=== PATIENT | male | born 1990 | race Asian ===

== ENCOUNTER 2019-12-09 09:41 | Inpatient (IN) | payer OTHER ==
[~2019-12-09] VITALS: Ht 182.9 cm; Wt 136.1 kg
[2019-12-09 09:57] VITALS: Ht 182.9 cm; Wt 136.1 kg
--- NOTE | 2019-12-09 10:00 | NUR ---
PT BIB [facility] FOR C/O OF EPIGASTRIC PAIN SINCE 0000 LAST NIGHT S/P EATING "[employer]." PT WAS PICKED UP FROM [facility].PT REPORTS NAUSEA AT THIS TIME. PT ABDOMEN NOTED DISTENDED AND FIRM AROUND OSTOMY LOCATED OT LUQ. OSTOMY BAG NOTED CLEAN, PT IS AAOX4, RESP E/U, PINK STOMA NOTED TO LUQ, NO VOMITING NOTED AT THIS TIME. PLACED PT ON FULL CM, NSR. AWAITING MSE BY .
--- NOTE | 2019-12-09 10:15 | NUR ---
PT GIVEN URINAL AND INSTRUCTED OF URINE SAMPLE.
--- NOTE | 2019-12-09 10:28 | NUR ---
THERAPEUTIC RIDING INSTRUCTOR AT THE BEDSIDE FOR LAB DRAW
--- NOTE | 2019-12-09 10:30 | NUR ---
EKG IN PROGRESS
[2019-12-09 10:38] LABS: BASOPHIL % 0.6 % (0-2); PLATELET COUNT 227 x10^3mcL (130-400)
[2019-12-09 10:41] LABS: RED CELL DISTRIBUTION WIDTH 15.1 % (11.5-14.5)
[2019-12-09 10:42] LABS: rbc morphology (normal/abnorm) ABNORMAL (NORMAL)
--- NOTE | 2019-12-09 10:42 | NUR ---
PT RETURNED FROM [facility] VIA [facility]
--- NOTE | 2019-12-09 10:46 | NUR ---
MEDICATED PT PER MD ANDERSON, SEE EMAR. PT VERBALIZED UNDERSTANDING OF MEDICATION TEACHING
[2019-12-09 10:54] LABS: CALCIUM 9.5 mg/dL (8.5-10.1); CARBON DIOXIDE 28.5 mmol/L (21-32); CHLORIDE SERUM 105 mmol/L (98-107); CREATININE SERUM 1.2 mg/dL (0.7-1.3); GFR1 > 60 mL/min; GLUCOSE SERUM 103 mg/dL (74-106); POTASSIUM SERUM 3.8 mmol/L (3.5-5.1); SODIUM SERUM 143 mmol/L (136-145)
[2019-12-09 10:59] LABS: ALBUMIN 4.2 g/dL (3.4-5.0); ALKALINE PHOSPHATASE 67 U/L (46-116); ALT/SGPT 39 U/L (16-63); AST/SGOT 21 U/L (15-37); BILIRUBIN TOTAL 0.5 mg/dL (0.20-1.00); LIPASE 104 IU/L (73-393)
--- NOTE | 2019-12-09 11:07 | NUR ---
DR MUJICA AT THE BEDSIDE DISCUSSING PLAN OF CARE.
--- NOTE | 2019-12-09 11:36 | NUR ---
PT UNNABLE TO GIVEN URINE AT THIS TIME.
--- NOTE | 2019-12-09 11:36 | NUR ---
DR GUTIERRES AT THE BEDSIDE. PT AWARE HE WILL BE SEEN BY A SURGEON AND ADMITTED TO THE [facility].
--- NOTE | 2019-12-09 12:37 | NUR ---
GAVE REPORT TO ALVIN ROSARIO ON [facility] UNIT WHO WILL ASSUME FURTHER CARE OF THIS PATIENT.
[2019-12-09 12:46] LABS: microscopic required? NO
--- NOTE | 2019-12-09 12:50 | NUR ---
RECEIVED PT FROM ED. ACCOMPANIED BY 2 NURSES VIA Between. PT AAOX4, VERALLY RESPONSIVE. BREATHING EVEN AND UNLABORED, ON ROOM AIR, IN NO ACUTE RESPIRATORY DISTRESS. COLOSTOMY PRESENT, STOMA IS PINK AND MOIST, NO DRAINAGE NOTED. IV SITE TO RIGHT AC INTACT AND PATENT WITH NS 100CC/HR. PATIENT IS AMBULATORY AT BASELINE. C/O PAIN TO UPPER ABDOMEN 8/10 NON-RADIATING. WILL MEDICATE ORDERED. ORIENTED TO ROOM, BED CONTROL, CALL LIGHT SYSTEM. BED IN LOWEST POSITION. WILL CONTINUE TO MONITOR.
[2019-12-09 13:00] LABS: UA SPECIFIC GRAVITY 1.015 (1.005-1.035); urine erythrocyte NEGATIVE (NEGATIVE)
[2019-12-09 13:19] LABS: FREE T4 1.17 ng/dL (0.76-1.46); FREE THYROXINE INDEX 2.5 ug/dL (1.4-4.5)
[2019-12-09 13:21] LABS: T3 TOTAL 1.44 ng/mL
[2019-12-09 14:57] VITALS: BP 144/93
--- NOTE | 2019-12-09 19:30 | NUR ---
ENDORSE PT TO INCOMING NURSE. IN BED AAOX4, VERBALLY RESPONSIVE. DENIES PAIN OR DISCOMFORT AT THIS TIME. ON ROOM AIR, IN NO ACUTE RESPIRATORY DISTRESS. IV SITE TO LFA INTACT AND PATENT RUNNING ON NS AT 100CC/HR. SCD IN PLACE. BED IN LOWEST POSITION. CALL LIGHT WITHIN REACH.
--- NOTE | 2019-12-09 19:45 | NUR ---
RECIEVED REPORT FROM [facility] NURSE. PT IS SITTING AT SIDE OF BED WITH EYES OPEN. PT IS ALERT AND ORIENTED X4. ABLE TO ANSWER ALL QUESTIONS AND COMMANDS. PT STATES HE DOES FEEL DIZZY AND NAUSEOUS. PT HAS ZOFRAN PRESCRIBED PRN AND PT DID REQUEST THE MEDICATION. WILL FOLLOW UP WITH THIS MEDICATION. BREATH SOUNDS CTA. ON ROOM AIR, BREATHING E/U. RADIAL PULSES PRESENT AND MODERATE. BOWEL SOUNDS ARE HYPOACTIVE IN ALL QUADRANTS. LAST BM WAS 2 DAYS AGO. PT ALSO STATES NO GAS HAS PASSED IN COLOSTOMY. STOMA IS PINK IN COLOR. DISTENSION NOTED IN LUQ AND LLQ. ABDOMEN SOFT IN RUQ AND RLQ. PT STATES DISTENSION WAS WORSE A FEW DAYS AGO, BUT STILL APPEARS DISTENDED. HEALED SURGICAL SCAR BELOW UMBILICUS. NO PAIN NOTED AT THIS TIME. IV ON LFA 20 G. SITE CDI. NO PAIN ON IV SITE NOTED AT THIS TIME. NS RUNNING AT 100 MLS/HR. WILL CONTINUE TO MONITOR. BED IN LOWEST AND LOCKED POSITION. CALL LIGHT WITHIN REACH.
[2019-12-09 20:44] VITALS: BP 130/70
--- NOTE | 2019-12-09 20:45 | NUR ---
ASSISTED PT TO MOVE FROM A BED TO B BED WITHIN THE SAME ROOM. PT REQUESTED THIS BECAUSE HE WAS FEELING, "HOT" AND WANTED TO BE NEAR THE AIR CONDITIONER. BED LOCKED AND IN LOWEST POSITION BEFORE TRANSFERING. PT MADE COMFORTABLE IN BED. PT WAS GIVEN ZOFRAN PRN REQUESTED. WILL FOLLOW UP FOR EFFECT OF MEDICATION. CALL LIGHT WITHIN REACH. WILL CONTINUE TO MONITOR.
--- NOTE | 2019-12-09 21:05 | NUR ---
PT STATES HE STILL FEELS NAUSEOUS BUT NO PAIN NOTED AT THIS TIME. PT ALSO STATES HE DOES NOT WANT ANY PAIN MEDICATION. WILL CONTINUE TO MONITOR FOR PAIN. PT AWARE OF NPO STATUS. ALTHOUGH HE IS REQUESTING ICE CHIPS. WILL FOLLOW UP WITH DOCTOR. BED IN LOWEST AND LOCKED POSITION. WILL CONTINUE TO MONITOR. CALL LIGHT WITHIN REACH.
--- NOTE | 2019-12-10 01:35 | NUR ---
PT STATED 8/10 PAIN ON LFA IV SITE. PTS LFA 20 G IV DC. NEW IV SITE STARTED ON RIGHT WRIST 22G BY MARLENE KING. GOOD FLUSH AND BLOOD RETURN. NO PAIN NOTED AT THIS TIME. WILL CONTINUE TO MONITOR NEW IV SITE. NS FLUIDS STARTED AT 100 MLS/HR. BED IN LOWEST AND LOCKED POSITION. CALL LIGHT WITHIN REACH.
--- NOTE | 2019-12-10 02:35 | NUR ---
FOLLOWED UP WITH PATIENT AND HE SAID RIGHT WRIST IV SITE WAS PAINFUL. 8/10 PAIN. OBSERVED IV SITE AND SITE WAS CDI. NO DRAINAGE OR REDNESS AT SITE. NO SWELLING. WILL FOLLOW UP ONCE I SPEAK WITH MARLENE KING. BED IN LOWEST AND LOCKED POSITION. CALL LIGHT WITHIN REACH. NOTIFIED PATIENT TO PRESS CALL LIGHT IF PAIN WORSENS.
--- NOTE | 2019-12-10 02:45 | NUR ---
CAME BACK INTO THE ROOM TO SPEAK WITH PT AND PT HAS PULLED OUT HIS OWN IV ON THE RIGHT WRIST 22G. IV CATHETER LOOKS INTACT. NO BLEEDING NOTED. PT STATED IT, "HURT." FLUIDS STOPPED AT THE MOMENT AND TURNED OFF IV PUMP. WILL FOLLOW UP AND PUT NEW IV SITE ON PT. PT MADE COMFORTABLE. BED IN LOWEST AND LOCKED POSITION. WILL CONTINUE TO MONITOR.
[2019-12-10 05:25] VITALS: BP 135/69
--- NOTE | 2019-12-10 05:45 | NUR ---
FERNANDO ROSARIO HAS INSERTED LH 20 G IV. GOOD FLUSH AND BLOOD RETURN. NO REDNESS OR DRAINAGE NOTED. NO PAIN NOTED AT THIS TIME. WILL CONTINUE TO MONITOR. CALL LIGHT WITHIN REACH.
--- NOTE | 2019-12-10 06:15 | NUR ---
INSERTED A 16 ARGENTINE NGT TO LEFT NARES, PT SEMI TOLERANT OF PROCEDURE. TWO NURSES AT BEDSIDE TO ASSIST. CALLED RADIOLOGY FR STAT KUB PLACEMENT VERIFICATION. WILL CONTINUE TO MONITOR.
--- NOTE | 2019-12-10 06:20 | NUR ---
PT STATING "IN GOING TO PULL IT OUT, IM GOING TO PULL IT OUT, I DON'T CARE!" EDUCATED PT IN REGARDS TO THE RISK OF PULLING OUT NGT WELL THE BENEFITS OF THE NGT FOR DECOMPRESSION. CHARGE NURSE BA AT BEDSIDE FOR SAFETY. PT QUIET AND APPEARS TO GRASP THE IMPORTANCE OF BEING TOLERANT OF TUBE. RADIOLOGY AT BEDSIDE TO TAKE IMAGE. WILL CONTINUE TO MONTIOR.
--- NOTE | 2019-12-10 06:32 | NUR ---
PHONED DR. ANN FOR A RELAXATION MEDICATION D/T PT JUST WANTS TO SLEEP S/P NGT PLACEMENT. WILL WAIT FOR ORDER.
--- NOTE | 2019-12-10 06:40 | NUR ---
MEDICATED PT WITH ATIVAN 1MG IVP TO HELP RELAX S/P NGT INSERTION. PT CALM AND COOPERATIVE WITH PLAN AT THIS TIME. WILL REMAIN AT BEDSIDE TO ENSURE PT DOES NOT PULL ON NGT.
--- NOTE | 2019-12-10 07:10 | NUR ---
RECEIVED PT IN BED ASLEEP AT THE TIME. EASILY AROUSABLE. ON NPO STATUS. NGT IN PLACE WITH LOW INTERMITTENT SUCTION. IV SITE TO LEFT HAND RUNNING ON NS 100CC/HR. IN NO ACUTE RESPIRATORY DISTRESS. NO FACIAL GRIMACING OR GRUNTING. BED IN LOWEST POSITION. CALL LIGHT WITHIN REACH. WILL CONTINUE TO MONITOR.
--- NOTE | 2019-12-10 07:31 | NUR ---
FERNANDO RN ENDORSED CARE TO DAYSHIFT NURSE. PATIENT IN BED LYING SUPINE WITH EYES CLOSED. DAYSHIFT NURSE MADE AWARE OF PT PULLING OUT LINES. CONSENT SIGNED. CHECKLIST COMPLETED. NG TUBE INSERTED. AWAITING KUB RESULTS. BED IN LOWEST AND LOCKED POSITION. CALL LIGHT WITHIN REACH.
[2019-12-10 09:12] VITALS: BP 145/74
--- NOTE | 2019-12-10 09:20 | NUR ---
PT PULLED OUT NG TUBE. HE STATED THAT IT WAS UNCOMFORTABLE. MADE AWARE.
--- NOTE | 2019-12-10 12:10 | NUR ---
PT IN BED AWAKE, VERBALLY RESPONSIVE. DENIES PAIN OR DISCOMFORT AT THIS TIME. BREATHING EASY WITH NO RESPIRATORY DISTRESS. BED IN LOWEST POSITION. CALL LIGHT WITHIN REACH. WILL CONTINUE TO MONITOR.
[2019-12-10 13:37] VITALS: BP 131/77
--- NOTE | 2019-12-10 16:30 | NUR ---
MADE ROUNDS AND FOUND PT'S IV DISLODGED ON THE TABLE. HE STATED "IT WAS UNCOMFORTABLE, I WANT TO GO DOWNSTAIRS TO GET SOME FRESH AIR" EXPLAINED HOSPITAL PROCEDURE FOR SAFETY PURPOSES. PT BECAME AGITATED AND STATED "I'M HUNGRY, IF I CAN'T EAT I WOULD JUST GET OUT OF HERE".EXPLAINED NPO STATUS AND STILL PERSISTENT WITH LEAVING AMA. CAME AND EXPLAINED THE SITUATION. PT AGREED TO STAY. PER , HE WILL TALK TO SURGEON ABOUT SURGERY FOR TOMORROW. WILL CONTINUE TO MONITOR.
--- NOTE | 2019-12-10 16:40 | NUR ---
REINSERTED IV SITE TO LEFT HAND 20G AND SECURED WITH TRANSPARENT DRESSING.
[2019-12-10 17:27] VITALS: BP 124/67
--- NOTE | 2019-12-10 19:23 | NUR ---
PT IN BED AT THIS TIME. BREATHING EASY WITH NO ACUTE RESPIRATORY DISTRESS. DENIES PAIN OR DISCOMFORT AT THIS TIME. SCD IN PLACE. IV SITE TO LEFT HAND 20G INTACT AND PATENT RUNNING ON D5 100CC/HR. BED IN LOWEST POSITION. CALL LIGHT WITHIN REACH. WILL ENDORSE TO INCOMING SHIFT.
--- NOTE | 2019-12-10 19:30 | NUR ---
RECIEVED REPORT FROM DAYSHIFT NURSE. DAYSHIFT NURSE HAD NOTFIED US THAT PT HAS BEEN REPORTING THAT HE WILL BE PULLING OUT HIS IV SITE D/T PAIN. WHEN I ENTERED ROOM PT HAS ALREADY PULLED OUT IV ON LH. PT STATES HE WAS IN PAIN. PT ALSO STATES, "I DONT CARE ABOUT THIS ANYMORE." I ASKED IF HE WOULD LIKE A NEW IV PUT IN SO FLUIDS CAN BE RESUMED. HE STATED HE DID NOT WANT AN IV OR ANY FLUIDS AT THIS TIME. PT IS ON ROOM AIR, BREATHING E/U. DISTENSION IS STILL NOTED IN LUQ AND LLQ. BOWEL SOUNDS HYPOACTIVE. NO SOB OR CHEST PAIN. ALERT AND ORIENTED X4. PT HAS NO C/O PAIN AT THIS TIME. PT STATES HE DOES FEEL NAUSEOUS BUT ONLY HAS PRESCRIBED IV ZOFRAN AT THIS TIME. WILL FOLLOW UP WITH PRECEPTOR NURSE. BED IN LOWEST AND LOCKED POSITION. CALL LIGHT WITHIN REACH.
--- NOTE | 2019-12-10 20:25 | NUR ---
PT REQUESTING TO LEAVE AGAINST MEDICAL ADVICE. DR. CONTRERAS AT BEDSIDE TO EXPLAIN THE RISK OF LEAVING WITH SUCH DIAGNOSIS. PT REFUSING TO ANSWER ANY QUESTIONS OR VERBALIZE UNDERSTANDING. PT REFUSING TO SIGN AMA FORMS. UPDATED CHARGE NURSE IN REGARDS TO PT PLAN ON LEAVING. ENCOURAGED PT TO OBTAIN PERSONAL BELONGINGS FROM ROOM. WILL ENSURE PT MAKES IT OUT OF HOSPITAL SAFELY.
--- NOTE | 2019-12-10 20:30 | NUR ---
PT REFUSING TO LEAVE AT THIS TIME, STATES "DO WHATEVER YOU WANT, JUST DO IT RIGHT NOW. DON'T DELAY MY SURGERY ANY LONGER". PT STATES "I WILL IF I LEAVE". EDUCATED PT HE DELAYED THE SURGERY D/T PULLING OUT NGT AND IV'S. PT STATES " I WOKE UP AND THE NGT WAS OUT". INFORMED PT THAT PULLING OUT THE IV'S IS NOT HELPFUL TO HIS SITUATION. PT STATES "WELL, IT HURTS AND YOU GUYS TAKE TOO LONG!". INFORMED PT THE SITE IS NOT SWOLLEN, AND IT FLUSHES WELL. 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 WILL UPDATE RESIDENT WITH PT STATUS.
--- NOTE | 2019-12-10 20:50 | NUR ---
SPOKE TO PATTERNMAKER APPRENTICE WOOD IN REGARDS TO PT BEING DIFFICULT AND INTERFERRING WITH PLAN OF CARE YET REQUESTING TO STAY. PER PATTERNMAKER APPRENTICE WOOD, ALLOW PT TO STAY AND IF ANY REFUSALS OCCUR OVERNIGHT, TO HAVE PT SIGN APPROPRIATE PAPERWORK. WILL MONITOR PT OVERNIGHT AND IMPLEMENT ORDERS ACCORDINGLY. PT STABLE AT THIS TIME.
--- NOTE | 2019-12-10 23:07 | NUR ---
PT SEEN RESTING IN BED WITH EYES CLOSED. BED IN LOWEST AND LOCKED POSITION. CALL LIGHT WITHIN REACH.
--- NOTE | 2019-12-11 00:30 | NUR ---
FAITH RN INSERTED IV 18G ON LFA. GOOD FLUSHING AND BLOOD RETURN. NO REDNESS OR DRAINAGE NOTED. NO C/O PAIN AT THIS TIME. PT WAS ALSO REQUESTING SOMETHING FOR NAUSEA. GAVE PT ZOFRAN PRN PRESCRIBED. WILL FOLLOW UP FOR EFFECT OF MEDICATION. WILL CONTINUE TO MONITOR. BED IN LOWEST AND LOCKED POSITION. CALL LIGHT WITHIN REACH.
[2019-12-11 01:35] VITALS: BP 160/86
--- NOTE | 2019-12-11 02:17 | NUR ---
PT WAS REQUESTING PAIN MEDICATION FOR ABD PAIN 02/21. PT ONLY HAS PO PAIN MEDICATIONS. CALLED DR. CONTRERAS BY PHONE AND SHE STATED SHE WOULD PUT SOMETHING IN THE ORDERS. WAITED FOR VERIFICATION BY PHARMACY. ACKNOWLEDGED MEDICATION. PT GIVEN MORPHINE PRN PRESCRIBED IVP. WILL FOLLOW UP FOR EFFECT OF MEDICATION. WILL CONTINUE TO MONITOR. BED IN LOWEST AND LOCKED POSTION. CALL LIGHT WITHIN REACH.
--- NOTE | 2019-12-11 02:50 | NUR ---
PT STILL HAS C/O PAIN 01/21 IN ABD. WILL FOLLOW UP WITH PT HE ONLY HAS PRESCRIBED MORPHINE PRN Q3HRS. BED IN LOWEST AND LOCKED POSITION. CALL LIGHT WITHIN REACH.
--- NOTE | 2019-12-11 04:00 | NUR ---
CHECKLIST PRINTED AND COMPLETED FOR UPCOMING SURGERY.
[2019-12-11 06:07] VITALS: BP 119/71
--- NOTE | 2019-12-11 06:16 | NUR ---
PT STATED BACK PAIN 01/21. REQUESTING PAIN MEDICATION. TOOK BP. BP WAS 117/75. BREATHING E/U. ON ROOM AIR. NO SOB. NO C/O PAIN RADIATING ELSEWHERE THROUGHOUT BODY. PT GIVEN MORPHINE PRN PRESCRIBED. FOLLOWED UP FOR EFEECT OF MEDICATION ABOUT 30 MIN LATER. PT STATES PAIN WAS THE SAME ON BACK 01/21. WILL CONTINUE TO MONITOR.
[2019-12-11 06:56] LABS: BASOPHIL % 0.4 % (0-2); PLATELET COUNT 204 x10^3mcL (130-400)
[2019-12-11 07:03] LABS: RED CELL DISTRIBUTION WIDTH 15.4 % (11.5-14.5)
[2019-12-11 07:06] LABS: CALCIUM 8.3 mg/dL (8.5-10.1); CARBON DIOXIDE 26.7 mmol/L (21-32); CHLORIDE SERUM 104 mmol/L (98-107); CREATININE SERUM 1.2 mg/dL (0.7-1.3); GFR1 > 60 mL/min; GLUCOSE SERUM 84 mg/dL (74-106); POTASSIUM SERUM 3.7 mmol/L (3.5-5.1); SODIUM SERUM 138 mmol/L (136-145)
--- NOTE | 2019-12-11 07:10 | NUR ---
RECEIVED BEDSIDE REPORT FROM NIGHT RN. PT ASLEEP IN BED. BREATHING EQUAL AND UNLABORED ON RA. NO ACUTE DISTRESS. CALL LIGHT WITHIN REACH. BEDLOCKED IN LOWEST POSITION.
--- NOTE | 2019-12-11 07:21 | NUR ---
ENDORSED CARE TO DAYSHIFT NURSE. PT IS IN BED RESTING WITH EYES CLOSED. PT IS BREATHING ON ROOM AIR. BREATHING E/U. NO C/O PAIN AT THIS TIME. BED IN LOWEST AND LOCKED POSTIION. CALL LIGHT WITHIN REACH.
[2019-12-11 07:51] VITALS: BP 113/59
--- NOTE | 2019-12-11 09:19 | NUR ---
GAVE REPORT TO JENELLE ROSARIO FROM OR. PRE-OP PREP DONE.
--- NOTE | 2019-12-11 11:11 | NUR ---
PT TAKEN TO OR VIA GURNEY IN NO ACUTE DISTRESS.
[2019-12-11 19:15] VITALS: BP 149/93
--- NOTE | 2019-12-11 19:15 | NUR ---
PT RECEIVED BY OR VIA [employer]. PT CURRENTLY SLEEPING NO S/S OF ACUTE DISTRESS NOED. PT PLACED ON TELE#9 READING SINUS TACHY AT 108. BP 138/93, HR 104. RR EVEN AND UNLABORED ON RA. IV TO LFA, PATENT AND INTACT. SOTO CATHETER IN PLACE DRAINING BLOOD TINGED URINE. ABD BINDER IN PLACE. NO C/O PAIN OR DISCOMFORT AT THIS TIME. CALL LIGHT PLACED WITHIN PTS REACH, BED IN LOWEST POSITION. WILL CONTINUE TO MONITOR.
[2019-12-11 19:45] VITALS: BP 149/93
[2019-12-11 21:45] VITALS: BP 153/101
[2019-12-12] VITALS (7 sets, daily range): BP systolic 123–158; BP diastolic 76–110
--- NOTE | 2019-12-12 00:30 | NUR ---
PT SLEEPING AT THIS TIME. NO S/S OF ACUTE DISTRESS NOTED. RR EVEN AND UNLABORED ON 1L NC. NO C/O OF PAIN AT THIS TIME. CALL LIGHT PLACED WITHIN PTS REACH. BED IN LOWEST POSITION. WILL CONTINUE TO MONITOR.
--- NOTE | 2019-12-12 04:04 | NUR ---
PT C/O CHEST PRESSURE AND ABD PAIN 10/10. DR. NARAYAN NOTIFIED, EKG AND NITRO ORDERED. NO ADDITIONAL PAIN MEDICATION PERSCRIBED AT THIS TIME. WILL CONTINUE TO MONITOR.
--- NOTE | 2019-12-12 04:17 | NUR ---
STAT EKG SHOWED SINUS TACH WITH ST ELEVATION. DR. NARAYAN NOTIFIED.
--- NOTE | 2019-12-12 05:13 | NUR ---
PT REFUSED AM LAB DRAW. NOTIFIED.
--- NOTE | 2019-12-12 06:10 | NUR ---
MEDICATED PT FREQUENTLY THROUGHOUT THE NIGHT. ALL NEEDS ADDRESSED AND MET.
--- NOTE | 2019-12-12 06:19 | NUR ---
PT IN NO ACUTE DISTRESS. THROUGHOUT SHIFT PT EXPRESSED VERBAL ABUSE MULTIPLE TIMES, SWEARING AND THROWING THINGS AT STAFF. MEDICATED PT FREQUENTLY PER EMAR THROUGHOUT THE NIGHT. ALL NEEDS ADDRESSED AND MET. PT UNCOOPERATIVE WITH CARE, CHARGE NURSE AND DR. NARAYAN MADE AWARE. WILL ENDORSE TO ONCOMING SHIFT NURSE.
--- NOTE | 2019-12-12 06:43 | NUR ---
DELFINA DRAINING SANGUINEOUS FLUID, 50ML OUTPUT THROUGHOUT SHIFT. SOTO CATHETER D/C.
--- NOTE | 2019-12-12 07:15 | NUR ---
RECIEVED BEDSIDE REPORT FROM NIGHT RN. PT ASLEEP IN BED. EASILY AROUSABLE. NO ACUTE DISTRESS. BREATHING EQUAL AND UNLABORED ON 4L NASAL CANULA. NO CO PAIN AT THIS TIME. CALL LIGHT WITHIN REACH. BED LOCKED IN LOWEST POSITION. WILL CONTINUE TO MONITOR.
--- NOTE | 2019-12-12 08:00 | NUR ---
PT REFUSED AM LAB DRAW. DR NOTIFIED
--- NOTE | 2019-12-12 12:00 | NUR ---
PT ABLE TO SIT UP ON SIDE OF BED WITH ASSISTANCE FOR FIVE MINUTES. PT RETURNED TO LAYING IN BED. NO ACUTE DISTRESS. BREATHING UNLABORED AND EVEN. CALL LIGHT WITH REACH. BED LOCKED IN LOWEST POSITION. WILL CONTINUE TO MONITOR.
--- NOTE | 2019-12-12 15:05 | NUR ---
PT ABLE TO STAND WITH ASSISTANCE TO USE URINAL. URINE DARK RED IN COLOR. PT BACK IN BED. CALL LIGHT WITHIN REACH. BED LOCKED IN LOWEST POSITION. ALL NEEDS MEET AT THIS TIME.
--- NOTE | 2019-12-12 16:10 | NUR ---
PT DENIED PT EVAL
--- NOTE | 2019-12-12 17:06 | NUR ---
PT CO SORE NECK AND RIBS. GIVEN ICE PACKS FOR BOTH. CALL LIGHT WITHIN REACH. BED LOCKED IN LOWEST POSITION. WILL CONTINUE TO MONITOR.
--- NOTE | 2019-12-12 17:29 | NUR ---
P.T. NOTES MULT ATTEMPTS FOR P.T. EVAL, Pt REFUSING, BRIEFLY OPENS EYES, WANTS PAIN MEDS, DOES NOT SPEAK MUCH, RN AWARE; CALL GARCIA, PHONE, TABLE IN REACH, BED ALARM ON, O2 SAT ROOM AIR=95%, HS=076; FF UP WHEN MORE PARTICIPATIVE.
--- NOTE | 2019-12-12 18:44 | NUR ---
PT ASLEEP IN BED. NO SCUTE DISTRESS. HOB ELEVATED. BREATHING EQUAL AND UNLABORED ON 3L NC. NO CO OF PAIN AT THIS TIME. IV IN LEFT HAND 22G DRESSING CDI WITH NO REDNESS SWELLING. PT REFUSED TO USE INSENTIVE SPIROMETER THROUGHT DAY. DELFINA DRAIN ON RIGHT SIDE EMPTIED 70ML BRIGHT RED BLOOD. ALL DRESSING ON ABD INTACT. PT REFUSED BLOOD DRAWS AND PHYSICAL THERAPY TWICE. DR. BARCENAS AWARE. ALL NEEDS MEET AT THIS TIME. CALL LIGHT WITHIN REACH. BED LOCKED AND IN LOWWEST POSITION.
--- NOTE | 2019-12-12 19:26 | NUR ---
RECEIVED PT ASLEEP BUT EASILY AROUSABLE.S/P LAP SX 12/11/19 TO ABDOMEN WITH PRR 04/23 TO ACHING PAIN.BP 157/92 MMHG,HR 117.ABDOMINAL INCISION WITH DRESSING AND SECURED WITH ABDOMINAL BINDER.DELFINA DRAIN TO SEROSANGINOUS OUTPUT.DIMINISHED BREATHSOUNDS.O2 @ 5L/MIN VIA N/C.ENCOURAGED AND DEMONSTRATED PROPER USE OF INCENTIVE SPIROMETER AND DOING 200-300 AT THIS TIME.ABDOMEN FIRM AND DISTENDED.TENDER TO TOUCH.HYPOACTIVE BOWELSOUNDS.TOLERATING FULL LIQUID DIET.ENCOURAGED ACTIVITY.DILAUDID 1 MG IVP ADMINSITERED.COMFORT MEASURES RENDERED.DISCUSSED PAIN MGT TONIGHT AND PASSIVE ABT IT.WILL CONTINUE TO MONITOR.
--- NOTE | 2019-12-12 20:57 | NUR ---
ASSISTED PT IN STANDING UP AND BURPED AT THIS TIME.NORCO 5/325 MG PO ADMINISTERED.COMFORT MEASUERES RENDERED.ENCOURGAED DEEP BREATHING EXERCISES AND USE OF I.S..WILL CONTINUE TO MONITOR.
--- NOTE | 2019-12-13 00:45 | NUR ---
PT NOTED CALLED FOR WATER AND MORE PAIN MEDICATIONS.TOLD NOT DUE YET TIL ANOTHER 15 MINUTES.ALSO NOTED,REMOVED IV LINES AND PULSE OXIMETER FROM FINGER.C/O SOB BUT REMOVES O2 CANNULA.INFORMED OF IMPORTANCE OF ALL EQUIPMENTS BUT REMAINS PASSIVE AND JUST CONTINOUSLY ASKING FOR HIS DILAUDID SHOT.WILL MEDICATE ACCORDINGLY.
--- NOTE | 2019-12-13 01:08 | NUR ---
DUE DILAUDID 1 MG GIVEN .COUPLE OF REQUESTS AT THIS TIME I AFTER THE OTHER.ALL NEEDS MET.ENCOURAGED DEEP BREATHING EXERCISES AND USE OF INCENTIVE SPIROMETER,REQUESTED TO REMOVED HOSP[ITAL GOWN WELL FOR COMFORT.WILL CONTINUE TO MONITOR.
--- NOTE | 2019-12-13 03:00 | NUR ---
PT CONTINUES TO REQUEST PAIN MEDICATIONS ALMOST EVERY 2HOURS.NORCO GIVEN EARLIER BUT INEFFECTIVE PER PT AND DEMANDING TO GET HIS DILAUDID SHOT.DISCUSSED PAIN MGT WITH PT BUT BECAME VERBALLY ABUSIVE TOWARDS STAFF AND TOLD"JUST DO YOUR JOB""AND FUCKING GIVE ME MY MEDICINE".DISCOURAGED BEHAVIOR.CONTINUE TO ENCOURAGED DEEP BREATHING EXERCISES AND INCREASED ACTIVITY.ALS TOLD PT NOT TO UMHOOK HIMSELF FROM IV FLUIDS AND REMOVE MONITORS.ALLOWS TO CALM DOWN.DILAUDID 1 MG IVP ADMINISTERED.WILL CONTINUE TO MONITOR.
--- NOTE | 2019-12-13 04:25 | NUR ---
PT ASKED FOR PAIN MEDS.PT WELL AWARE PAIN MEDS NOT DUE ANYTIME AT THIS TIME.OFFERED DUE 6AM MEDS NEURONTIN AND TYLENOL ES AT THIS TIME BUT SET-UP MEDS BY THE TABLE.ALLOWED TIME TO TAKE MEDS AND WHEN WAS TOLD WHY HE HASN'T TAKEN IT WHEN HE WAS ASKING FOR PAIN MEDS EARLIER STARTED CURSING OUT STAFF AND VERBALIZED" GET THE F.... OUT OF HERE." WILL ALLOW PT TO CALM DOWN.LEFT THE ROOM.
--- NOTE | 2019-12-13 04:31 | NUR ---
PT AWAKE ALMOST ALL NIGHT ASKING FOR PAIN MEDS ALMOST EVERY HOUR.CONSTANLY REMINDED TIME OF HIS PAIN MEDS BUT GETS AGITATED IF HE WONT GET WHAT HE WANTS.VERBALLY ABUSIVE TOWARDS STAFF.NO ASE NOTED FROM ANCEF AND FLAGYL IV ATB.GOT UP OF BED BY BEDSIDE ONLY AND BURPED.CONSTANTLY ENCOURAGED USE OF INCENTIVE SPIROMETER.EMPTIED 20 ML SEROSANGINOUS OUTPUT.WILL CONTINUE TO MONITOR.
[2019-12-13 04:51] VITALS: BP 142/86
--- NOTE | 2019-12-13 05:11 | NUR ---
PT MORE CALM AT THIS TIME.PO MEDS OFFERED AGAIN.DILAUDID 1 MG IV GIVEN WELL.NOTED IV FLUIDS LINE DISCONNECTED AGAIN BY PT.DISCOURAGED BEHAVIOR AND INFORMED IV ATB RUNNING AT THIS TIME.COMFORT MEASURES RENDERED.WILL CONTINUE TO MONITOR.
--- NOTE | 2019-12-13 06:32 | NUR ---
DR. PATRICK MADE AWARE OF PT'S BEHAVIOR ALL NIGHT AND UPDATED ON PT'S ASKING FOR A LOT OF PAIN MEDICATIONS.
[2019-12-13 07:02] LABS: PLATELET COUNT 222 x10^3mcL (130-400)
--- NOTE | 2019-12-13 07:10 | NUR ---
DR. BARCENAS IN TO SEE PT AND UPDATED ON PTS BEHAVIOR AND NEED FOR A LOT OF PAIN MEDS LAST NIGHT.CHARGE NURSES BOTH AM /PM AWARE.
--- NOTE | 2019-12-13 07:10 | NUR ---
RECIEVED BEDSIDE REPORT FROM NIGHT RN. PT ASLEEP IN BED. NO CO PAIN AT THIS TIME. NO ACUTE DISTRESS. HOB ELEVATED. BREATHING EQUAL AND UNLABORED ON 3L NC IV LEFT HAND INTACT WITH NO REDNESS OR SWELLING. URINAL WITHIN REACH. PT TOOK PULSE OX OFF. CALL LIGHT WITHIN REACH. BED LCOKED IN LOWEST POSITION. WILL CONTINUE TO MONITOR.
[2019-12-13 07:27] LABS: CALCIUM 8.4 mg/dL (8.5-10.1); CHLORIDE SERUM 99 mmol/L (98-107); CREATININE SERUM 1.2 mg/dL (0.7-1.3); GFR1 > 60 mL/min; GLUCOSE SERUM 133 mg/dL (74-106); SODIUM SERUM 135 mmol/L (136-145)
[2019-12-13 08:20] VITALS: BP 168/88
[2019-12-13 08:35] LABS: BASOPHIL % 0 % (0-2); RED CELL DISTRIBUTION WIDTH 14.9 % (11.5-14.5)
--- NOTE | 2019-12-13 11:34 | NUR ---
PT ABLE TO SIT ON EDGE OF BED AND MANAGER LOAN PLACE WITH ASSISTANCE. PT USED INCENTIVE SPIROMETER X5 TIMES. REFUSED OTHER ATTEMPTS TO TRY IT. NEW ABDOMINAL BINDER INTACT. ALL ABD DRESSINGS CLEAN DRY AND INTACT. MIDLINE INCISION WITH DERMABOND INTACT. ALL NEEDS MEET AT THIS TIME. CALL LIGHT WITHIN REACH. BED LOCKED IN LOWEST POSITION. WILL CONTINUE TO MONITOR.
--- NOTE | 2019-12-13 13:10 | NUR ---
NEW IV STARTED IN RIGHT HAND 20G WITH GOOD BLOOD RETURN. PT AMBULATED APPROX. 50FT IN HALLWAY WITH NO NEED OF ASSISTANCE. PT AMBULATED TO TOILET TO PEE. PT STATED HE FEELS LESS BLOATED AFTER AMBULATING. PT BACK IN BED RESTING. BREATHING EQUAL AND UNLABORED ON 3L NC. CALL LIGHT WITHIN REACH. BED LCOKED IN LOWEST POSITION. WILL CONTINUE TO MONITOR.
[2019-12-13 16:06] VITALS: BP 156/101
--- NOTE | 2019-12-13 18:55 | NUR ---
PT ASLEEP IN BED. NO CO PAIN AT THIS TIME. BREATHING UNLABORED AND EVEN ON 3L NC.IV IN R HAND CLEAN DRY INTACT. ALL NEEDS MEET AT THIS TIME. CALL LIGHT WITHIN REACH. BED LOCKED IN LOWEST POSITION. WILL ENDORSE TO NIGHT RN.
--- NOTE | 2019-12-13 19:10 | NUR ---
RECEIVED PT FROM PREVIOUS SHIFT. PT RESTING WITH EYES CLOSED. RR EVEN/UNLABORED. IV PATENT AND INFUSING LR AT 125ML/HR WITH NO S/S OF INFILTRATION. ABD BINDER IN PLACE, CDI. CALL LIGHT WITHIN REACH, BED IN LOW POSITION WILL CONTINUE TO MONITOR.
[2019-12-13 19:18] VITALS: BP 149/86
--- NOTE | 2019-12-13 22:01 | NUR ---
PT DISCONNECTED IV WHILE INFUSING. REFUSING IV FLUIDS. INFORMED PATIENT OF ORDERED TREATMENT AND ENCOURAGED HIM TO ALLOW TREATMENT. CONTINUES TO REFUSE.
--- NOTE | 2019-12-13 22:36 | NUR ---
PT C/O 10/10 PAIN TO ABD. UPON ENTERING ROOM, WATER AND URINE ON THE FLOOR. PATIENT THREW PITCHER ON THE FLOOR. DISCONNECTED IV AND ATTEMPTED TO THROW IV POLE. SECURITY CALLED TO BEDSIDE. DILAUDID GIVEN IVP. PT REFUSING LR FLUIDS.
--- NOTE | 2019-12-14 00:34 | NUR ---
PT C/O 04/23 ABD PAIN. DILAUDID GIVEN IVP PER EMAR. WITNESSED AT BEDSIDE BY MARLENE GAMBLE.
--- NOTE | 2019-12-14 01:30 | NUR ---
NORCO PROVIDED PER EMAR. PT THREW FOOD TRAY ON FLOOR. CURSING AND YELLING AT STAFF. REFUSING VITAL SIGNS. REFUSING ASSESSMENT OF SURGICAL DRESSING.
--- NOTE | 2019-12-14 02:30 | NUR ---
DILAUDID IVP GIVEN PER EMAR, WITNESSED AT BEDSIDE BY MARLENE BERRY
--- NOTE | 2019-12-14 04:43 | NUR ---
DILAUDID GIVEN IVP PER EMAR, WITNESSED AT BEDSIDE BY MARLENE YUSUF
[2019-12-14 04:46] VITALS: BP 152/97
--- NOTE | 2019-12-14 06:32 | NUR ---
PT CONTINUES TO REFUSE IV FLUIDS, AND ANITBIOTICS. REFUSING DRESSING CHANGES TO ABD. EDUCATED PATIENT ON IMPORTANCE OF ADHERING TO MEDICATIONS. VERBALIZED UNDERSTANDING, CONTINUES TO REFUSE. IV DILAUDID GIVEN PER EMAR, WITNESSED AT BEDSIDE BY MARLENE YUSUF. WILL ENDORSE CARE TO ONCOMING SHIFT
[2019-12-14 07:18] LABS: PLATELET COUNT 226 x10^3mcL (130-400)
[2019-12-14 07:19] LABS: BASOPHIL % 0 % (0-2); RED CELL DISTRIBUTION WIDTH 14.8 % (11.5-14.5)
[2019-12-14 07:20] VITALS: BP 145/93
--- NOTE | 2019-12-14 07:20 | NUR ---
RECEIVED PT IN BED A/A/OX4 DENIES FOSTER. RESP EVEN AND UNLABORED WITH CLEAR BS BILAT. ON RA AND O2 AT 2L/MIN PRN WHEN SOB. AFTER AMBULATION. DENIES ANY SOB/CP/PRESSURE AT THIS TIME. ST ON TELE. NO EDEMA NOTED WITH IVF TO RH. PER REPORT AND PT HAS BEEN REFUSING IVF. PT WOULD NOT ALLOW FLUIDS AT THIS TIME. ABD DISTENDED AND TENDER WITH HYPOACTIVE BS >LT SIDE. PT S/P COLOSTOMY TAKEDOWN WITH HERNIA REPAIR POD3. HAD MIDLINE INCISION GENIE WITH DRSG TO MID ABD, WITH SOME DRY SANGUINOUS DRAINAGE. LLQ WITH ABD PAD IN PLACE AT OLD COLOSTOMY SITE. RMID ABD WITH DELFINA DRAIN TO CALE DRAIN TO SUCTION WITH SEROUSANGUINOUS DRAINAGE ABOUT 5ML. PT DENIES N/V OR FLATUS, +BURPING. REPORTS FEELING BLOATED AND UNCOMFORTABLE. VOIDING FREELY WITH AMY URINE. DOES VOID INTO SHEETS OR TOWELS AT TIMES. AMBULATORY, INSTRUCTED TO INCREASE ACTIVITY TOLERATED. CALL LIGHT IN REACH NEEDS ATTENDED TO AND ANTICIPATE. PT CALM AT THIS TIME. NOT VERBALY AGRESIVE.
[2019-12-14 07:22] LABS: CALCIUM 8.8 mg/dL (8.5-10.1); CARBON DIOXIDE 31.2 mmol/L (21-32); CHLORIDE SERUM 98 mmol/L (98-107); GFR1 > 60 mL/min; GLUCOSE SERUM 107 mg/dL (74-106); SODIUM SERUM 136 mmol/L (136-145)
--- NOTE | 2019-12-14 07:28 | NUR ---
PT C/O PAIN AT THIS TIME. TO ABD MEDICATED WITH NORCO PO PER EMAR. PT C/O OF FEELING BLOATED AND DISTENDED ABD. WILL DISCUSS WITH SMT OPERATOR.
--- NOTE | 2019-12-14 07:35 | NUR ---
SPOKE WITH SUPERVISOR RESEARCH KENNEL REGARDING C/O BLOATING. PER SUPERVISOR RESEARCH KENNEL WILL ORDER MEDS. CONT TO MONITOR.
--- NOTE | 2019-12-14 08:00 | NUR ---
CALLED INTO PT'S ROOM REQUESTED SHAWN MADE AWARE THAT TOLL BRIDGE ATTENDANT HAD TITRATED MEDS DOWN AND HE WAS NOT DUE UNTIL AFTER 10AM. PT REQUESTED SOMETHIGN FOR PAIN D/T INCREASE DISCOMFORT. SPOKE WITH TOLL BRIDGE ATTENDANT DISCUSSED POSS ADDING TORADOL. PER TOLL BRIDGE ATTENDANT WILL ADD MEDICATION FOR BREAKTHROUGH. AWAITING ORDERS.
--- NOTE | 2019-12-14 08:17 | NUR ---
PT C/O MILD BACK PAIN 10/22, MEDICATED WITH TYLENOL PER EMAR. CALL LIGHT IN REACH NEEDS ATTENDED TO.
--- NOTE | 2019-12-14 11:12 | NUR ---
SPOKE WITH DR. BARCENAS'S PA MADHAV. UPDATED ON PT'S CONDITION. PER PA DR. BARCENAS WANTS DIET CHANGED TO CLEAR LIQUID AT THIS TIME. TO [facility] PT LATER THIS AFTERNOON.
--- NOTE | 2019-12-14 11:36 | NUR ---
PT MADE AWARE TO LIMIT ORAL INTAKE INSTRUCTED BY PA. PT ALLOWED FOR IVF TO RESUME AT THIS TIME,. CONNECTED LR PREVIOUSLY ORDERED AT 125ML/HR.
--- NOTE | 2019-12-14 12:20 | NUR ---
PT REPORTED NO IMPROVEMENT AND INCREASE IN PAIN TO 8/10, PT REQUESTING IVP DILAUDID. MEDICATED PER EMAR. CALL LIGHT IN REACH NEEDS ATTENDED TO.
--- NOTE | 2019-12-14 14:36 | NUR ---
DR. BARCENAS AT BEDSIDE TO EVAL PT. MADE AWARE OF OUTPUT FROM CALE ONLY 5ML LAST 6HRS. MADE AWARE PT HAD 50ML GREEN EMESIS AND HAD PROVOKED ANOTHER 100ML. PT WITH HYCUPS AND BURPING HAD NO HAD FLATUS. PER MD INCREASE FLUIDS TO 150ML/HR AND CHANGE DILAUDID BACK TO Q2HRS. PT HAD CONCERNS ADDRESS. PT HAD BEEN SEATING ON BEDSIDE CHAIR AND WAS ASSISTED BACK TO BED. AWAITING MEDS VERIFICATION TO MEDICATE PT.
--- NOTE | 2019-12-14 14:46 | NUR ---
PT WITH ABD PAIN 9/10 TO ABD, MEDICATED WITH DILAUDID IVP PER EMAR. CALL LIGHT IN REACH NEEDS ATTENDED TO.
--- NOTE | 2019-12-14 16:00 | NUR ---
P.T. NOTES Pt REPORTS HE ALREADY WALKED IN HALLWAY WITH NURSE STAFF, WANTS TO REST AT THIS TIME, GIVEN DILAUDID; CONFIRMED W/ NURSE STAFF, Pt AMBULATORY; NO SKILLED P.T. INTERVENTION INDICATED AT THIS TIME.
[2019-12-14 16:33] VITALS: BP 150/95
--- NOTE | 2019-12-14 16:42 | NUR ---
PT C/O ABD PAIN 03/24, MEDICATED WITH DILAUDID IVP PER EMAR. PT NOTED WITH IMPROVEMENT WITH HICUPS NOT FREQUENT. DENIES ANY N/V AT THIS TIME. CALL LIGTH IN REACH NEEDS ATTENDED TO.
--- NOTE | 2019-12-14 17:54 | NUR ---
PT C/O PAIN TO ABD 12/22, MEDICATED WITH NORCO PO PER EMAR. PT DENIED ANY N/V OR FLATUS AT THIS TIME. CALL LIGHT IN REACH NEEDS ATTENDED TO.
--- NOTE | 2019-12-14 19:30 | NUR ---
REPORT RECEIVED FROM DAY SHIFT RN. PATIENT WAS SEEN RESTING COMFORTABLY IN BED. BREATHING E/U ON ROOM AIR. NO SOB OR RESP DISTRESS NOTED. DENIES CHEST PAIN. C/O OF 9/10 ABD PAIN. AWARE THAT DILAUDID AND NORCO ARE NOT DUE AT THIS TIME. NONPHARM MEASURES IMPLEMENTED. IV TO THE RH, 20G, INFUSING WELL PATENT AND INTACT. DENIES N/V. ABD WITH DRESSING IN PLACE, CDI. DELFINA DRAIN TO LEFT ABD TO CALE DRAIN IN PLACE. COMFORT AND SAFETY MEASURES IN PLACE. BED IS LOCKED AND IN LOWEST POSITION. SIDE RAILS UP X2. CALL LIGHT IS WITHIN REACH. WILL CONTINUE TO MONITOR.
--- NOTE | 2019-12-14 19:30 | NUR ---
REPORT RECEIVED FROM DAY SHIFT RN. PATIENT WAS SEEN RESTING COMFORTABLY IN BED. BREATHING E/U ON ROOM AIR. NO SOB OR RESP DISTRESS NOTED. DENIES CHEST PAIN. C/O OF 10/10 ABD PAIN. AWARE THAT DILAUDID AND NORCO ARE NOT DUE AT THIS TIME. NONPHARM MEASURES IMPLEMENTED. IV TO THE RH, 20G, INFUSING WELL PATENT AND INTACT. DENIES N/V. ABD WITH DRESSING IN PLACE, CDI. DELFINA DRAIN TO RIGHT ABD TO CALE DRAIN IN PLACE; MINIMAL SEROSANGUIEOUS DRAINAGE NOTED. COMFORT AND SAFETY MEASURES IN PLACE. BED IS LOCKED AND IN LOWEST POSITION. SIDE RAILS UP X2. CALL LIGHT IS WITHIN REACH. WILL CONTINUE TO MONITOR.
--- NOTE | 2019-12-14 20:20 | NUR ---
PATIENT KEEPS CALLING FOR DILAUDID. INFORMED PATIENT IS NOT DUE AT THIS TIME. PATIENT GOT ANGRY AND STARTED YELLING. WILL CONTINUE TO MONITOR.
--- NOTE | 2019-12-14 20:49 | NUR ---
PRN DILAUDID IVP GIVEN FOR 10/10 ABD PAIN. MED EDUCATION PROVIDED; PURPOSE, SIDE EFFECTS. NO ACUTE DISTRESS NOTED. BREATHING E/U ON ROOM AIR. WILL CONTINUE TO MONITOR.
[2019-12-14 21:39] VITALS: BP 137/74
--- NOTE | 2019-12-14 21:56 | NUR ---
PRN NORCO GIVEN FOR PAIN 03/24 TO ABD. MEDICATION EDUCATION PROVIDED. 2157- PRN ZOFRAN GIVEN FOR NAUSEA. RESTING IN BED, CALM AT THIS TIME. WILL CONTINUE TO MONITOR.
--- NOTE | 2019-12-14 22:51 | NUR ---
ADRIÁN RODRIGUEZ FOR 03/24 ABD PAIN. NO ACUTE DISTRESS NOTED. PATIENT REPORTS HE TRIED TO HAVE A BM WITHOUT SUCCESS, ABLE TO VOID IN BATHROOM. EDUCATED THAT NARCOTICS CAUSE CONSTIPATION. ASSISTED WITH ADJUSTING BED TON COMFORT. CALL LIGHT WITHIN REACH. WILL CONTINUE TO MONITOR.
[2019-12-15] VITALS (8 sets, daily range): BP systolic 144–178; BP diastolic 83–100
--- NOTE | 2019-12-15 00:12 | NUR ---
POSITIVE FOR MRSA NARES. NO MEDICATION ORDERS. DR ANN MADE AWARE.
--- NOTE | 2019-12-15 00:51 | NUR ---
C/O 03/24 ABD PAIN. PRN DILAUDID IVP GIVEN PER ORDER. NO ACUTE DISTRESS NOTED. BREATHING E/U. WILL CONTINUE TO MONITOR.
--- NOTE | 2019-12-15 02:08 | NUR ---
c/o 04/23 ABD PAIN. REQUESTING DILAUDID, BUT NOT DUE AT THIS TIME. PRN NORCO GIVEN PER ORDER. REPOSITIONED TO COMFORT. EMPITIED 200ML OF DARK AMY URINE FROM URINAL. WILL CONTINUE TO MONITOR.
--- NOTE | 2019-12-15 03:12 | NUR ---
C/O 10/10 ABD PAIN. PRN DILAUDID GIVEN PER ORDER. ASSISTED W/ REPOSITIONING PATIENT TO COMFORT. REQUESTING O2, APPLIED 2L NC ON PATIENT. SAFETY MEASURES IN PLACE. CALL LIGHT IS WITHIN REACH. WILL CONTINUE TO MONITOR.
--- NOTE | 2019-12-15 05:22 | NUR ---
C/O OF 10 ABD PAIN. MOANING, GROANING WITH FACIAL GRIMACING. PRN DILAUDID GIVEN PER ORDER. PATIENT STATES " THE PAIN IS SO BAD. CAN WE GET AN XRAY?!" DR ANN MADE AWARE.
--- NOTE | 2019-12-15 06:22 | NUR ---
RESTED IN SHORT INTERVALS. PAIN MEDS GIVEN THROUGHOUT THE NIGHT. BREATHING E/U ON 2L NC. NO SOB OR RESP DISTRESS NOTED. ABD DRESSING CDI. CALE DRAIN W/ 10ML OF SEROSANGUIEOUS DRAINAGE OUT. IV TO THE RH, 20G, SALINE LOCK. REFUSED IV FLUIDS AND SCHEDULED MEDS. ALL NEEDS MET AND ADDRESSED. CALL LIGHT IS WITHIN REACH. WILL ENDORSE CARE TO DAY SHIFT RN.
--- NOTE | 2019-12-15 07:00 | NUR ---
RECIEVEDPT RESTING IN BED, A/O X4 WITH NO DISTRESS NOTED. PT FOUND ON 2 LPM O2 NC, NO SOB NOTED. Q6H STRICT I&O NOTED AND WILL CARRY OUT. MIDLINE ABD INCISION WITH DERMABOND AND R/L ABD DRESSING CDI. DELFINA DRAIN TO CALE DRAIN ON RIGHT SIDE ABD, NO DRAINAGE AT THIS TIME. LR 150 ML/HR ORDERED TO RUN, PT REFUSING, MD AWARE. IV TO RH CDI AND PATENT. SAFETY PRECAUTIONS IN PLACE, CALL LIGHT WITHIN REACH, WILL MONITOR.
[2019-12-15 07:07] LABS: BASOPHIL % 0.1 % (0-2); PLATELET COUNT 306 x10^3mcL (130-400)
[2019-12-15 07:08] LABS: RED CELL DISTRIBUTION WIDTH 15.4 % (11.5-14.5)
[2019-12-15 07:10] LABS: CALCIUM 8.4 mg/dL (8.5-10.1); CARBON DIOXIDE 27.7 mmol/L (21-32); CHLORIDE SERUM 100 mmol/L (98-107); GFR1 > 60 mL/min; GLUCOSE SERUM 102 mg/dL (74-106); POTASSIUM SERUM 3.9 mmol/L (3.5-5.1); SODIUM SERUM 136 mmol/L (136-145)
--- NOTE | 2019-12-15 08:09 | NUR ---
DILAUDID GIVEN PER EMAR FOR C/O 9/10 ABD PAIN, WILL REASSESS.
--- NOTE | 2019-12-15 10:00 | NUR ---
LATE ENTRY FOR 12/14/19 AT 1730. PT PROVIDED WITH HOMELESS WAIVER FORM DISCUSSED WITH SS. READ STATES IN WAIVER AND INQUIRE WHERE PT WAS GOING AFTER D/C. PT STATED BACK TO [facility] [address] PT THEN ASKED IF WE WERE PAYING FOR AND IF THATS WHAT THE WAIVER WAS. PT MADE AWARE THAT DISCUSSED WITH SS THEY PROVIDED HIM WITH A RESOURSE PACK ABOUT [employer] LOCALLY BUT THEY DO NOT PROVIDED WITH PAYMENT ASSISTANCE FOR PLACEMENT. PT REFUSED TO SIGNED WAIVER AND STATED HE WANTED MORE INFORMATION ABOUT BC. WILL ENDORSE TO NOTIFY SS TO F/U WITH TOMORROW.
--- NOTE | 2019-12-15 11:01 | NUR ---
NORCO GIVEN PER EMAR FOR C/O 9 ABD PAIN, WILL REASSESS.
--- NOTE | 2019-12-15 12:17 | NUR ---
DILAUDID GIVEN PER EMAR FOR C/O 9/10 ABD PAIN, WILL REASSESS.
--- NOTE | 2019-12-15 14:47 | NUR ---
NORCO GIVEN PER EMAR FOR C/O 10 ABD PAIN. DRESSING CHANGES DONE, CDI. WILL REASSESS PAIN.
--- NOTE | 2019-12-15 15:59 | NUR ---
1. Recommend continue clear liquid diet as necessary 2. Recommend regular diet when appropriate to advance diet
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
--- NOTE | 2019-12-15 16:05 | NUR ---
DILAUDID GIVEN PER EMAR FOR C/O 9/10 ABD PAIN, WILL REASSESS.
--- NOTE | 2019-12-15 17:26 | NUR ---
ZOFRAN GIVEN PER EMAR FOR NAUSEA, WILL REASSESS.
--- NOTE | 2019-12-15 18:27 | NUR ---
PT RESTING IN BED, A/O X4 WITH NO DISTRESS NOTED. PT ON RA WITH NO SOB NOTED. Q6H STRICT I&O NOTED AND WILL CARRY OUT. MIDLINE ABD INCISION WITH DERMABOND AND R/L ABD DRESSING CDI, CHANGED TODAY. DELFINA DRAIN TO CALE DRAIN ON RIGHT SIDE ABD, 15ML DRAINAGE ALL SHIFT. LR 150 ML/HR ORDERED TO RUN, PT REFUSING, MD AWARE. IV TO RH CDI AND PATENT. SAFETY PRECAUTIONS IN PLACE, CALL LIGHT WITHIN REACH, WILL ENDORSE CARE TO NIGHT NURSE.
--- NOTE | 2019-12-15 19:10 | NUR ---
RECEIEVED REPORT FROM DENISE ROSARIO. WILL RESUME CARE.
--- NOTE | 2019-12-15 19:25 | NUR ---
RECIEVED PT AAOX4, SPEECH CLEAR. PT VERY AGITATED AND NONCOMPLIANT WITH CARE AT TIMES. BREATHING E/U. ON RA. S1S2 AUSCULTATED. PT STATES NO CHEST PAIN AT THIS TIME. CAP REFILL <3 SEC. PULSES PALPABLE. ABDOMEN OBESE, DISTENDED. BS HYPOACTIVE X 4. MIDLINE ABDOMINAL INCISION WITH DERMABOND, DRESSING CDI, R AND L ANDOMINAL DRESSING INTACT, J/P DRAIN ON R SIDE DRAINING MINIMAL SEROUSANGUINOUS DRAINAGE. BED IN LOW POSITION. CALL LIGHT WITHIN REACH. WILL CONTINUE TO MONITOR.
--- NOTE | 2019-12-15 19:52 | NUR ---
PT C/O 02/21 ABDOMINAL PAIN. GIVEN DILAUDID 0.5MG IVP. WILL REASSESS FOR RELIEF.
--- NOTE | 2019-12-15 21:28 | NUR ---
PT REFUSED BACTROBAN 2% OINTMENT TO NARES AND D5-1/2NS/[id number]/L IV FLUIDS. PT YELLING AND VERY AGITATED SAYING "GET OUT OF MY ROOM AND TURN THE LIGHTS OFF NOW".
--- NOTE | 2019-12-16 02:16 | NUR ---
PT HAD EPISODE OF YELLOW/GREENISH EMESIS X 1. OFFERED PT ZOFRAN TO HELP WITH NAUSEA AND PT REFUSES. BOTH MYSELF AND ETIQUETTE TEACHER TRIED TO CLEAN PT AND ROOM. PT CONTINUES TO YELL THAT HE WANTS US OUT OF THE ROOM AND TO LEAVE HIM ALONE. PT HAS BEEN GIVEN BLANKETS MULTIPLE TIMES AND CONTINUES TO THROW THEM ON THE FLOOR.
--- NOTE | 2019-12-16 05:36 | NUR ---
PT REFUSED TYLENOL EXTRA STRENTH 500MG PO. PT STATES "I ONLY WANT DILAUDID". THROUGHOUT SHIFT PT HAS BEEN AGITATED, CONSTANTLY YELLING AT STAFF. SENIOR LIVING SALES COUNSELOR AND MYSELF CLEANED ROOM AND ATTEMPTED TO CHANGE PT'S LINENS BUT PT REFUSED.
[2019-12-16 05:48] VITALS: BP 140/78
[2019-12-16 06:45] LABS: CALCIUM 8.4 mg/dL (8.5-10.1); CARBON DIOXIDE 31.5 mmol/L (21-32); CHLORIDE SERUM 98 mmol/L (98-107); GFR1 > 60 mL/min; GLUCOSE SERUM 92 mg/dL (74-106); POTASSIUM SERUM 3.4 mmol/L (3.5-5.1); SODIUM SERUM 137 mmol/L (136-145)
[2019-12-16 06:48] LABS: BASOPHIL % 0.3 % (0-2); PLATELET COUNT 333 x10^3mcL (130-400)
[2019-12-16 06:55] LABS: RED CELL DISTRIBUTION WIDTH 15.4 % (11.5-14.5)
--- NOTE | 2019-12-16 07:28 | NUR ---
RECEIVED PT FROM MEDICAL STAFF SERVICES COORDINATOR. AOX4 ABLE TO MAKE NEEDS KNOWN. C/O LIGHTHEADEDNESS BUT REFUSING ZOFRAN. LUNGS CTA, DENIES SOB/COUGH, RESPIRATIONS E/U. BOWEL SOUNDS HYPOACTIVE, ABDOMEN SOFT/ROUND. AMBULATES PER BRP. MIDLINE INCISION CDI, DRESSINGS TO R AND L ABD CDI, DELFINA DRAIN TO CALE ON R SIDE, CDI. DENIES PAIN AT THIS TIME, WILL MEDICATE MI. IV TO RH PATENT, NO REDNESS OR SWELLING NOTED AROUND SITE. CALL LIGHT IN REACH, WILL CONTINUE TO MONITOR.
[2019-12-16 09:03] VITALS: BP 156/85
--- NOTE | 2019-12-16 12:25 | NUR ---
PT MEDICATED FOR PAIN AND N/V. NEW IV SITE TO LUE, PATENT AND INFUSING. PT AGREEABLE TO START IV FLUIDS. PT UP AND WALKING TO BATHROOM AND TOOK A SHOWER STATING "I'M ALL DIRTY". PT WAS GIVEN NEW GOWN, TOWELS AND BLANKETS. PT NOW RESTING IN BED WITH EYES CLOSED. PT STATED HE NEEDED O2 BECAUSE IT HELPS HIM SLEEP WITHOUT HICCUPS. ON 2L NC AT THIS TIME. WILL CONTINUE TO MONITOR.
[2019-12-16 17:07] VITALS: BP 137/69
--- NOTE | 2019-12-16 19:34 | NUR ---
PT RECIEVED AWAKE ALERT AND ORIENTED,REG RESP NO SOB R/A SAT 95%,ABDO IS SOFT OBESE WITH HYPOACTIVE BOWEL SOUNDS,PT HAS INCISION MID ABDO WHICH IS GENIE SITE INTACT AND HAS RT LOWER ABDO WITH ANTHER INCISION AND A DELFINA DRIAN COVERED,PT ALSO HAS J/P TO BULB SUCTION WITH SERSAGUIOUS DRAIN,HAS A IV INFUSING TO THE RT HAND WITH THE SITE PATENT AND INTACT,PT BEING ENCOURAGE TO AMBULATE AND HAVING CONTINOUS HICCPS,HOB,BED IN THE LOW POSITION AND LOCKED,KEPT CLEAN AND DRY TO TOUCH,CALL LIGHT EASY REACHED AND WILL CONTINUE TO MONITOR.
[2019-12-16 20:52] VITALS: BP 164/93
--- NOTE | 2019-12-16 22:41 | NUR ---
pt sceraming at the nurses and refused to have the fluids infusing,kept clean and dry to touch and will continue to monitor.
[2019-12-17 05:48] VITALS: BP 149/80
--- NOTE | 2019-12-17 06:28 | NUR ---
PT NON COMPLAINT AND BEING ENCOURAGING HIM TO AMBULATE IN THE HALLWAY BUT DOING IT, PT BUT WITH BRP,PT DID NOT PASS GAS AND NO BOWEL MOVEMENT,PT RESTING AT THIS TIME AND WILL CONTINUE TO MONITOR.
[2019-12-17 07:11] LABS: BASOPHIL % 0.4 % (0-2); PLATELET COUNT 338 x10^3mcL (130-400); RED CELL DISTRIBUTION WIDTH 15.3 % (11.5-14.5)
[2019-12-17 07:22] LABS: CARBON DIOXIDE 28.9 mmol/L (21-32); CHLORIDE SERUM 98 mmol/L (98-107); CREATININE SERUM 1.1 mg/dL (0.7-1.3); GFR1 > 60 mL/min; GLUCOSE SERUM 91 mg/dL (74-106); POTASSIUM SERUM 3.2 mmol/L (3.5-5.1); SODIUM SERUM 137 mmol/L (136-145)
--- NOTE | 2019-12-17 07:33 | NUR ---
RECEIVED PT FROM WATERPROOFER RN. AOEarl ABLE TO MAKE NEEDS KNOWN. PT CONTINUE TO BECOME ANXIOUS. LUNGS CTA, ON RA. BOWEL SOUNDS HYPOACTIVE, REPORTS NO BM LAST NIGHT AND NOT PASSING GAS. ABDOMEN SOFT/ROUND. CURRENTLY DENYING N/V. ASLEEP. MIDLINE ABDOMINAL SUTURES GENIE, CLEAN. DELFINA DRAIN TO LLQ IN PLACE, COVERED WITH ABDOMINAL DRESSING, CDI. CALE DRAIN IN PLACE, DRAINING SEROSANGUINEOUS FLUID, DRESSING CDI. IV INFUSING AT 100 ML/HR, IV SITE CDI. CALL LIGHT IN REACH, WILL CONTINUE TO MONITOR.
--- NOTE | 2019-12-17 08:09 | NUR ---
PT TAKEN DOWN FOR CT OF ABDOMEN
[2019-12-17 08:11] VITALS: BP 148/85
--- NOTE | 2019-12-17 11:20 | NUR ---
REPORTED RESULTS OF CT TO DIGNA ARVIZU. PER [employer], TO CONSULT DR BARCENAS DUE TO POSS POST OP ILEUS VS SBO
[2019-12-17 12:07] VITALS: BP 146/57
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
[2019-12-17 16:09] VITALS: BP 140/76
--- NOTE | 2019-12-17 16:55 | NUR ---
PT MEDICATED FOR PAIN WITH NORCO.
--- NOTE | 2019-12-17 18:30 | NUR ---
PT EXPRESSED DESIRE TO LEAVE AMA. PT EDUCATED THAT HE IS IN NO CONDITION TO LEAVE DUE TO HIS VOMITING/NAUSEA, AND CALE DRAIN AND X2 DELFINA DRAINS TO ABODMEN. PT WAS TOLD THAT HE IS AT RISK FOR INFECTION IF HE CHOOSES TO LEAVE, PT STATED "I DON'T CARE, I'M HUNGRY, IF I , I ." DISCUSSION WITNESSED BY SAURAV ROSARIO, WHO REPEATED EDUCATION TO PT, PT CONTINUES TO DEMAND TO LEAVE AND IS WILLING TO SIGN AMA.
--- NOTE | 2019-12-17 18:36 | NUR ---
PATIENT STATING THAT HE "WANTS TO LEAVE" WHEN ASKED IN PERSON, PATIENT STATES HE "ORDERED $40 WORTH OF FOOD" AND THAT HE WANTS TO EAT. PATIENT CONTINUES TO BE NPO DUE TO HERNIA REPAIR AND EXCESSIVE VOMITTING. EXPLAINED TO PATIENT RISKS OF LEAVING PREMATURELY AND THAT HE COULD BECOME SEPTIC. PATIENT STATES "IF I , I . I DON'T CARE I WANT TO EAT". CHARGE MILENA INFORMED, WILL NOTIFY HOGSHEAD HEAD MATCHER DIGNA.
--- NOTE | 2019-12-17 18:55 | NUR ---
DR SWAPNA TONY, DR CHANDLER CALLED BACK AND WAS INFORMED OF PT ATTEMPTING TO LEAVE AMA. WAS INFORMED OF ABMOMINAL DELFINA AND CALE DRAINS, NO INSTRUCTIONS WERE GIVEN TO REMOVE EITHER DRAIN. IV CATHETER WAS REMOVED AND INTACT. NOLBERTO SAWYER SPOKE WITH PT OVER THE PHONE, YET PT REMAINS FIXATED ON LEAVING. HE AGAIN STATED "I DON'T CARE, I'M HUNGRY, IF I , I ."
--- NOTE | 2019-12-17 19:52 | NUR ---
LATE ENTRY: AT AROUND 1840. PT GOT OFF BED AND BEGAN WALKING TOWARDS ELEVATOR, COVERING HIS FACE AND WITH HIS OWN CLOTHES ON. PT STATED HE WAS GOING DOWNSTAIRS TO UTILITY HELICOPTER REPAIRER HIS FOOD. PT PICKED UP HIS FOOD AND THEN RETURNED TO HIS ROOM. PT WAS BEING VERBALLY AGGRESSIVE WITH ALL MEMBERS OF STAFF, INCLUDING OTHER RN SAURAV, CHARGE NURSE, AND JUNIOR ENGINEER. PT STATED "OK I'LL GO" WHEN HE WAS TOLD BY SECURITY THAT HE CANNOT HAVE FOOD FROM OUTSIDE. PT WAS TOLD AGAIN OF ALL THE RISKS OF HIM LEAVING IN THIS CONDITION. PT ALLOWED TO REMOVE IV. PER DR CHANDLER'S ORDER, DELFINA AND CALE DRAIN WERE LEFT INTACT. DR BARCENAS DID NOT RETURN THE CALL UNTIL AFTER THE PT AT AROUND 1900 HAD ALREADY LEFT AND BECAME UPSET WITH NURSE MG, NURSE BERMAN AND CHARGE NURSE ANNIE BECAUSE HE WAS NOT CALLED EARLIER. DR BARCENAS WAS TOLD BY NURSE BERMAN AND CHARGE NURSE THAT WE ATTEMPTED TO REACH HIM BUT WERE UNSUCCESSFUL AND DR CHANDLER ANSWERED THE CALL. DUE TO THE SPONTANEITY OF PT WE COULD NOT WAIT FOR DR BARCENAS TO ANSWER. DR BARCENAS WAS ALSO INFORMED THAT NOLBERTO SAWYER WAS CALLED AND ALSO TALKED TO THE PT PRIOR TO HIM WALKING OUT.
== END 2019-12-17 19:59 | disposition left against medical advice (07) | DRG 231 ==
LOC: ED 09:41 → MU 11:31 → DU 12-11 20:52 → MU 12-14 09:04
PROVIDERS: Emergency Medicine; Family Medicine; Surgery; Urology; ADMIT Internal Medicine; ATTEND Internal Medicine
PROC: 0DBM0ZZ Excision of Descending Colon, Open Approach (ICD-10-PCS; 2019-12-11)
PROC: 0DNW0ZZ Release Peritoneum, Open Approach (ICD-10-PCS; 2019-12-11)
PROC: 0DJD4ZZ Inspection of Lower Intestinal Tract, Percutaneous Endoscopic Approach (ICD-10-PCS; 2019-12-11)
PROC: 0T788DZ Dilation of Bilateral Ureters with Intraluminal Device, Via Natural or Artificial Opening Endoscopic (ICD-10-PCS; principal; 2019-12-11 12:00)
PROC: BT141ZZ Fluoroscopy of Kidneys, Ureters and Bladder using Low Osmolar Contrast (ICD-10-PCS; 2019-12-11 12:00)
DX: K46.0 Unspecified abdominal hernia with obstruction, without gangrene (principal); E66.01 Morbid (severe) obesity due to excess calories; F17.200 Nicotine dependence, unspecified, uncomplicated; Z68.41 Body mass index [BMI] 40.0-44.9, adult; K56.7 Ileus, unspecified; Z88.6 Allergy status to analgesic agent; I10 Essential (primary) hypertension; Z88.8 Allergy status to other drugs, medicaments and biological substances; Z71.3 Dietary counseling and surveillance
CPT/HCPCS: 36600; 51610; 84439; 94150; G0378; J0690; J1170; J1650; J2001; J2060; J2175; J2250; J2270; J2405; J2543; J2550; J3010; J3480; J3490; J7030; J7042; J7120; Q0092; Q9967

== ENCOUNTER 2019-12-17 21:27 | Inpatient (IN) | payer OTHER ==
[~2019-12-17] VITALS: Ht 180.3 cm; Wt 149.2 kg
[2019-12-17 21:34] VITALS: Ht 180.3 cm; Wt 149.2 kg
[2019-12-17 22:28] LABS: BASOPHIL % 0.6 % (0-2); PLATELET COUNT 404 x10^3mcL (130-400); RED CELL DISTRIBUTION WIDTH 15.1 % (11.5-14.5)
[2019-12-17 22:44] LABS: ALKALINE PHOSPHATASE 66 U/L (46-116); ALT/SGPT 66 U/L (16-63); AST/SGOT 55 U/L (15-37); BILIRUBIN TOTAL 0.5 mg/dL (0.20-1.00); CALCIUM 8.1 mg/dL (8.5-10.1); CARBON DIOXIDE 27.3 mmol/L (21-32); CHLORIDE SERUM 100 mmol/L (98-107); CREATININE SERUM 1.1 mg/dL (0.7-1.3); GFR1 > 60 mL/min; GLUCOSE SERUM 117 mg/dL (74-106); LIPASE 369 IU/L (73-393); POTASSIUM SERUM 3.4 mmol/L (3.5-5.1); SODIUM SERUM 137 mmol/L (136-145); TOTAL PROTEIN, SERUM 6.7 g/dL (6.4-8.2)
[2019-12-17 22:49] LABS: ALBUMIN 2.9 g/dL (3.4-5.0)
[2019-12-18 01:05] VITALS: BP 181/99
[2019-12-18 05:53] VITALS: BP 166/92
[2019-12-18 06:37] LABS: BASOPHIL % 0.6 % (0-2)
[2019-12-18 06:44] LABS: PLATELET COUNT 410 x10^3mcL (130-400)
[2019-12-18 07:04] LABS: CARBON DIOXIDE 31.4 mmol/L (21-32); CHLORIDE SERUM 100 mmol/L (98-107); CREATININE SERUM 1.2 mg/dL (0.7-1.3); GFR1 > 60 mL/min; GLUCOSE SERUM 107 mg/dL (74-106); MAGNESIUM 2.2 mg/dL (1.8-2.4); PHOSPHOROUS 4.1 mg/dL (2.5-4.9); POTASSIUM SERUM 3.2 mmol/L (3.5-5.1); SODIUM SERUM 139 mmol/L (136-145)
[2019-12-18 08:48] VITALS: BP 156/81
[2019-12-18 13:13] VITALS: BP 146/75
[2019-12-18 17:02] VITALS: BP 150/84
[2019-12-18 21:17] VITALS: BP 144/75
[2019-12-19 01:00] VITALS: BP 143/82
[2019-12-19 02:59] LABS: BASOPHIL % 1.4 % (0-2)
[2019-12-19 03:00] LABS: PLATELET COUNT 430 x10^3mcL (130-400)
[2019-12-19 03:20] LABS: CALCIUM 8.2 mg/dL (8.5-10.1); CHLORIDE SERUM 104 mmol/L (98-107); CREATININE SERUM 1.1 mg/dL (0.7-1.3); GFR1 > 60 mL/min; GLUCOSE SERUM 106 mg/dL (74-106); MAGNESIUM 2.1 mg/dL (1.8-2.4); PHOSPHOROUS 4.2 mg/dL (2.5-4.9); POTASSIUM SERUM 3.9 mmol/L (3.5-5.1); SODIUM SERUM 140 mmol/L (136-145)
[2019-12-19 04:10] VITALS: BP 164/81
[2019-12-19 05:25] VITALS: BP 130/56
[2019-12-19 12:46] VITALS: BP 118/76
[2019-12-19 17:38] VITALS: BP 144/85
[2019-12-19 20:59] VITALS: BP 160/99
[2019-12-20 05:38] VITALS: BP 150/94
[2019-12-20 06:20] LABS: BASOPHIL % 0.5 % (0-2)
[2019-12-20 06:33] LABS: PLATELET COUNT 480 x10^3mcL (130-400); RED CELL DISTRIBUTION WIDTH 14.9 % (11.5-14.5)
[2019-12-20 07:14] LABS: CALCIUM 8.4 mg/dL (8.5-10.1); CARBON DIOXIDE 28.7 mmol/L (21-32); CHLORIDE SERUM 104 mmol/L (98-107); CREATININE SERUM 1.2 mg/dL (0.7-1.3); GFR1 > 60 mL/min; GLUCOSE SERUM 103 mg/dL (74-106); SODIUM SERUM 139 mmol/L (136-145)
[2019-12-20 09:05] VITALS: BP 136/75
[2019-12-20 17:07] VITALS: BP 125/71
[2019-12-20 21:20] VITALS: BP 145/86
[2019-12-21 05:36] VITALS: BP 138/90
[2019-12-21 08:56] VITALS: BP 127/78
[2019-12-21 17:29] VITALS: BP 113/62
[2019-12-21 19:52] VITALS: BP 122/76
[2019-12-22 05:09] VITALS: BP 138/88
[2019-12-22 08:15] VITALS: BP 131/76
[2019-12-22 12:09] VITALS: BP 145/89
== END 2019-12-22 14:44 | disposition left against medical advice (07) | DRG 137 ==
LOC: ED 21:27 → MU 23:20
PROVIDERS: ADMIT Family Medicine; ATTEND Family Medicine
DX: J69.0 Pneumonitis due to inhalation of food and vomit (principal); E44.0 Moderate protein-calorie malnutrition; Z68.41 Body mass index [BMI] 40.0-44.9, adult; K56.7 Ileus, unspecified; I10 Essential (primary) hypertension; D64.9 Anemia, unspecified; Z53.29 Procedure and treatment not carried out because of patient's decision for other reasons; Z88.6 Allergy status to analgesic agent; Z88.8 Allergy status to other drugs, medicaments and biological substances; E66.9 Obesity, unspecified; Z71.3 Dietary counseling and surveillance; Z91.19 Patient's noncompliance with other medical treatment and regimen; E86.0 Dehydration; Z20.828 Contact with and (suspected) exposure to other viral communicable diseases
CPT/HCPCS: 94150; G0378; J1170; J1885; J2270; J2405; J2543; J2765; J3480; J7030; J7040; J7060; Q0092; U0003-CS

== ENCOUNTER 2019-12-22 19:06 | Inpatient (IN) | payer OTHER ==
[~2019-12-22] VITALS: Ht 180.3 cm; Wt 143.0 kg
[2019-12-22 19:43] LABS: BASOPHIL % 0.2 % (0-2)
[2019-12-22 19:46] LABS: PLATELET COUNT 541 x10^3mcL (130-400); RED CELL DISTRIBUTION WIDTH 15.3 % (11.5-14.5)
[2019-12-22 19:55] LABS: CALCIUM 8.8 mg/dL (8.5-10.1); CHLORIDE SERUM 99 mmol/L (98-107); CREATININE SERUM 1.3 mg/dL (0.7-1.3); GFR1 > 60 mL/min; GLUCOSE SERUM 97 mg/dL (74-106); POTASSIUM SERUM 4.2 mmol/L (3.5-5.1); SODIUM SERUM 136 mmol/L (136-145)
[2019-12-22 20:00] LABS: ALKALINE PHOSPHATASE 113 U/L (46-116); ALT/SGPT 245 U/L (16-63); AST/SGOT 113 U/L (15-37); BILIRUBIN TOTAL 0.4 mg/dL (0.20-1.00); LIPASE 393 IU/L (73-393); TOTAL PROTEIN, SERUM 7.8 g/dL (6.4-8.2)
[2019-12-22 20:03] LABS: ALBUMIN 3.3 g/dL (3.4-5.0)
[2019-12-22 22:06] LABS: microscopic required? NO
[2019-12-22 22:12] LABS: urine erythrocyte NEGATIVE (NEGATIVE)
[2019-12-22 22:31] LABS: AMPHETAMINE QUAL UR NONE DETECTED (See below)
[2019-12-22 23:19] VITALS: BP 157/96
[2019-12-22 23:26] VITALS: Ht 180.3 cm; Wt 143.0 kg
[2019-12-23 07:30] VITALS: BP 146/77
[2019-12-23 13:54] VITALS: BP 133/86
[2019-12-23 16:44] VITALS: BP 137/77
[2019-12-23 20:30] VITALS: BP 131/77
[2019-12-24 08:19] VITALS: BP 133/52
[2019-12-24 14:29] LABS: BASOPHIL % 0.5 % (0-2)
[2019-12-24 14:30] LABS: PLATELET COUNT 461 x10^3mcL (130-400); RED CELL DISTRIBUTION WIDTH 15.6 % (11.5-14.5)
[2019-12-24 14:37] LABS: CALCIUM 8.2 mg/dL (8.5-10.1); CARBON DIOXIDE 25.2 mmol/L (21-32); CHLORIDE SERUM 102 mmol/L (98-107); CREATININE SERUM 1.2 mg/dL (0.7-1.3); GFR1 > 60 mL/min; GLUCOSE SERUM 103 mg/dL (74-106); MAGNESIUM 2.1 mg/dL (1.8-2.4); PHOSPHOROUS 3.9 mg/dL (2.5-4.9); POTASSIUM SERUM 4.1 mmol/L (3.5-5.1); SODIUM SERUM 135 mmol/L (136-145)
[2019-12-24 16:46] VITALS: BP 132/77
== END 2019-12-24 18:00 | disposition left against medical advice (07) | DRG 137 ==
LOC: ED 19:06 → DU 20:57 → MU 20:57 → DU 23:01 → MU 12-23 11:37
PROVIDERS: Emergency Medicine; ADMIT Internal Medicine; ATTEND Internal Medicine
DX: J69.0 Pneumonitis due to inhalation of food and vomit (principal); E44.0 Moderate protein-calorie malnutrition; E66.01 Morbid (severe) obesity due to excess calories; K56.7 Ileus, unspecified; Z68.41 Body mass index [BMI] 40.0-44.9, adult; I10 Essential (primary) hypertension; Z88.8 Allergy status to other drugs, medicaments and biological substances; Z53.29 Procedure and treatment not carried out because of patient's decision for other reasons; Z88.6 Allergy status to analgesic agent; F17.200 Nicotine dependence, unspecified, uncomplicated; Z71.3 Dietary counseling and surveillance
CPT/HCPCS: 94150; C9113; G0378; J1630; J2270; J2405; J2543